=== PATIENT | male | born 1940 | race Caucasian/White ===

== ENCOUNTER 2017-05-10 06:15 | Day surgery (SDC) | payer OTHER, MEDICARE ==
[~2017-05-10] VITALS: Ht 180.3 cm; Wt 127.0 kg
--- NOTE | ~2017-05-10 | O ---
[facility] [place] [address] OPERATIVE REPORT Name: TEA NOVOA Room #: DEP [facility]#: [id number] Admission: 05/10/17 Attend Phys: Ash Tran MD Discharge: 05/10/17 Date of : 40 Report #: [id number] THIS REPORT FOR: //name// CC: Dr. Duque [facility] Tri Uribe Jr, MD [facility] Guillermo Kim DATE OF SERVICE: 05/10/2017 SURGEON: Ash Tran MD [employer]UNDR[employer] MACHINE MECHANIC: None. PREOPERATIVE DIAGNOSIS: Bilateral upper lid dermatochalasia with superior visual field defect. POSTOPERATIVE DIAGNOSIS: Bilateral upper lid dermatochalasia with superior visual field defect. OPERATION PERFORMED: Bilateral upper lid functional blepharoplasty. ANESTHESIA: Local with IV sedation. COMPLICATIONS: None. INDICATIONS FOR SURGERY: This patient has acquired upper lid dermatochalasia with superior visual field loss both eyes because of excessive upper lid tissues to include skin and fat. Visual field testing demonstrates dense superior visual defects. Retesting with the upper lid elevated shows an improvement in visual field loss of over 30% and in excess of 12 degrees. The current procedures are undertaken in order to improve the patient's visual function. Informed consent was obtained to include but not limited to the loss of vision, bleeding, infection, scarring, failure to improve the problem and need for further surgery. DESCRIPTION OF OPERATION: The patient was taken to the operating room, where 2% Xylocaine with epinephrine mixed with equal parts of 0.75% Marcaine with Wydase was administered transcutaneously to each upper lid. The patient was then prepped and draped in the usual sterile fashion and a skin-marking pen was then utilized to outline an upper lid crease that was symmetrical on each side. Graefe forceps were then used to quantitate the redundant upper lid skin and it was similarly outlined. The incisions were then made with Dilia scissors and a skin-muscle flap removed from each side with high-temp cautery. [address] [address] OPERATIVE REPORT Name: TEA NOVOA Room #: DEP [facility]..#: [id number] Admission: 05/10/17 Attend Phys: Ash Tran MD Discharge: 05/10/17 Date of : 40 Report #: [id number] was achieved with the monopolar cautery as it was throughout the case. The orbital septum was then identified and the central and medial fat pads were inspected. The redundant soft tissue was then sculpted with the monopolar cautery. The upper lid crease was then reformed with tightening of the pretarsal orbicularis muscle. The upper lid crease was then further reformed with multiple interrupted 6-0 chromic sutures. The skin was then closed with a running 6-0 plain gut suture. The wound was then cleaned and dressed with ophthalmic antibiotic ointment and a nonstick dressing. The patient was transported to the recovery area, where cold compresses were applied, having tolerated the procedure well with no anesthetic or operative complications being noted. By: [id number] Ash Tran MD /nt
[~2017-05-10 06:15] MED LIST: ALLOPURINOL 30300 M1 PO; ASPIRIN EC81 M1 PO; CARVEDILOL12.5 MG PO; CLONIDINE0.1 PO; CYMBALTA30 MG PO; DILAUDID 2 MG TA2 MG PO; DILAUDID 4 MG TA4 MG PO; DULCOLAX STOOL100 MG PO; EFFIENT10 MG PO; FENTANYL PA25 MCG/HR TP; FENTANYL PA50 MCG/HR TP; FLEXERIL PO; FLOMAX0.4 MG PO; INDOMETHACIN 2525 MG PO; KLOR-CON 1010 MEQ PO; LASIX 20 MG TAB20 MG PO; LIDODERM 5%1 PATCH TOP; LOPID600 MG PO; MIRALAX255 GM PO; MOBIC15 MG PO; NEURONTIN 300M300 M2 PO; NIACIN 500 MG500 M1 PO; NITROSTAT0.4 MG SL; OXYCODONE HCL 55 MG PO; OXYCONTIN10 M1 PO; OXYCONTIN30 MG PO; PRILOSEC 20 MG20 MG PO; REFRESH TEARS15 ML OPHTHALMIC; SENNA-LAX8.6 MG PO; SYNTHROID150 MCG PO; VESICARE10 M1 PO; VITAMIN B COMP1 EAC7 PO; Viagra PO; XANAX1 MG PO
[2017-05-10 12:00] VITALS: BP 153/79
== END 2017-05-10 14:10 | disposition home or self-care (01) ==
LOC: TBA 06:15 → OR 06:15 → TBA 06:16 → OR 10:25
DX: H02.834 Dermatochalasis of left upper eyelid (principal); H02.831 Dermatochalasis of right upper eyelid; Z87.891 Personal history of nicotine dependence; G47.30 Sleep apnea, unspecified; F41.8 Other specified anxiety disorders; I10 Essential (primary) hypertension; Z95.5 Presence of coronary angioplasty implant and graft; Z85.820 Personal history of malignant melanoma of skin; K21.9 Gastro-esophageal reflux disease without esophagitis; Z98.42 Cataract extraction status, left eye; Z98.41 Cataract extraction status, right eye; Z98.890 Other specified postprocedural states; E78.4 Other hyperlipidemia; M06.80 Other specified rheumatoid arthritis, unspecified site; M10.9 Gout, unspecified
CPT/HCPCS: 50010; 50101; 50386; 50398; 51606; 51636; 56531; 62110; 62850; 70005